=== PATIENT | female | born 1950 | race Caucasian/White ===

== ENCOUNTER 2018-01-23 05:15 | Inpatient (IN) | payer OTHER, MEDICARE ==
[2018-01-04 12:36] LABS: URINE BILIRUBIN NEGATIVE (Negative); URINE BLOOD NEGATIVE (Negative); URINE CLARITY CLEAR; URINE COLOR YELLOW; URINE GLUCOSE-RANDOM* NEGATIVE (Negative); URINE KETONES NEGATIVE (Negative); URINE NITRITE-REFLEX NEGATIVE (Negative); URINE PROTEIN (DIPSTICK) NEGATIVE (Negative); URINE SPECIFIC GRAVITY 1.015 (1.005-1.035); URINE UROBILINOGEN 0.2 E.U./dl (0.2-1.0)
[2018-01-04 12:38] LABS: HEMATOCRIT 41.5 % (37.0-47.0); HEMOGLOBIN 14.1 gm/dL (12.0-15.0); MCH 31.6 pg (26.0-34.0); MCHC 33.9 g/dL (28.0-37.0); MCV 93.2 fL (80.0-100.0); RBC 4.45 mil/uL (4.20-5.00); WBC 7.8 thou/uL (4.0-11.0)
[2018-01-04 12:39] LABS: URINE LEUKOCYTES-REFLEX 1+ (Negative)
[2018-01-04 12:45] LABS: MUCUS 4-6 Moderate strn/LPF (None Seen)
[2018-01-04 12:46] LABS: BACTERIA-REFLEX 1-9 Few /HPF (None Seen); CASTS None Seen /LPF (None Seen); CRYSTALS None Seen /LPF (None Seen); SQUAMOUS >10 Many /LPF (0-3); URINE RBC 0-2 Rare /HPF (0-2); URINE WBC-REFLEX 6-15 Few /HPF (0-5)
[2018-01-04 12:47] LABS: ALBUMIN 4.1 g/dL (3.4-5.0); CALCIUM 9.4 mg/dL (8.5-10.1); CREATININE 0.8 mg/dL (0.6-1.0); POTASSIUM 4.7 mmol/L (3.5-5.1)
[2018-01-04 12:51] LABS: PROTIME 10.4 Seconds (9.3-11.4)
[~2018-01-23] VITALS: Ht 162.6 cm; Wt 98.4 kg
[2018-01-23] VITALS (10 sets, daily range): BP systolic 125–145; BP diastolic 43–72
--- NOTE | ~2018-01-23 | D ---
[facility] [place] [address] DISCHARGE SUMMARY Name: RE GAYLE Josue Room #: 406-P [facility] IN M..#: [id number] Admission: 01/23/18 Attend Phys: Juwan Nunez MD Discharge: 01/27/18 Date of : 52 Report #: [id number] THIS REPORT FOR: //name// CC: Juwan Capone DATE OF ADMISSION: 01/23/2018 DATE OF DISCHARGE: 01/27/2018 FINAL DIAGNOSIS: End-stage degenerative arthritis, right knee. OPERATIONS AND PROCEDURES: Right total knee arthroplasty. HISTORY OF PRESENT ILLNESS: This 67-year-old female presents with progressive right knee pain and clinical radiographic findings consistent with end-stage degenerative arthritis. She has elected to go ahead with total knee arthroplasty. HOSPITAL COURSE: She was admitted and taken to the operating room on January 25. She underwent right total knee arthroplasty, which she tolerated nicely. Postoperatively, her course was largely unremarkable. She was able to advance to regular diet and resume her routine medications. She was started on Xarelto as anticoagulation prophylaxis. She was able to advance to oral pain medications, then made good progress with physical therapy. She was still a bit too uncomfortable and weak for discharge on January 26, but seems now more comfortable, safe and independent and anxious for discharge home today. DISCHARGE MEDICATIONS: Include losartan 100 mg daily, Nelly 180 mg daily, albuterol inhaler p.r.n., hydrocodone 5 mg q.4h. p.r.n. for pain, Vyvanse 20 mg daily, vitamin D supplement 2000 units daily, Xarelto 10 mg daily. She will continue a gentle independent exercise program and begin outpatient therapy for range of motion and strengthening. I have asked her to call me should there be any problems or questions. I will plan to see her back in my office at about 2 weeks for followup and suture removal. <ELECTRONICALLY SIGNED> By: Juwan Nunez MD 01/31/18 0800 [id number] 1415 Juwan Nunez MD /nt
--- NOTE | ~2018-01-23 | O ---
[facility] [place] [address] OPERATIVE REPORT Name: RE GAYLE Room #: 406-P [facility] IN M.R.#: [id number] Admission: 01/23/18 Attend Phys: Juwan Nunez MD Discharge: Date of : 52 Report #: [id number] THIS REPORT FOR: //name// CC: Juwan Capone DATE OF SERVICE: 01/23/2018 PREOPERATIVE DIAGNOSIS: End-stage degenerative arthritis, right knee. POSTOPERATIVE DIAGNOSIS: End-stage degenerative arthritis, right knee. PROCEDURE: Right total knee arthroplasty. SURGEON: Juwan Nunez MD INDICATIONS: This heavy, somewhat deconditioned 67-year-old female presents with progressive right knee pain. Clinical exam and x-rays reveal moderate diffuse degenerative change with mild valgus malalignment and joint space narrowing. She has had similar problems in the opposite knee benefited by left total knee replacement in the past. She is here now for right total knee replacement. We have discussed preoperatively the potential risks and benefits of both surgical and nonsurgical management. She and her understand well and wish to proceed with right total knee arthroplasty. I have explained that she may have some difficulty with postoperative rehabilitation and also with the wound healing given her large size and moderately abundant adipose tissue. DESCRIPTION OF PROCEDURE: The patient was taken to the operating room where she was placed under general anesthesia. Prophylactic intravenous antibiotics were administered. The right knee and leg were meticulously prepped and draped. An anterior longitudinal skin incision was made and carried through abundant subcutaneous adipose tissue and through the medial parapatellar retinaculum. The patella was reflected laterally. Moderately severe degenerative change in all 3 compartments was noted. The [employer] Nephew knee system was utilized. Intramedullary guides were used on both the femur and the tibia. The femur was cut in 5 degrees of valgus and the tibia cut perpendicular to long axis of the bone. Sufficient bone was resected to correct the mild preoperative flexion contracture and mild valgus malalignment. The femur seemed best suited for a size 6 femoral component. The tibia was best suited for a size 5 tibial baseplate. A 10 mm polyethylene insert resulted in satisfactory alignment, range of motion and stability. The patellar surface was resected and a 35 mm patellar button fit nicely and a trial button was placed. The patella seemed to track nicely and appeared to be stable throughout a full arc of motion. The trial components were then removed. The surfaces were thoroughly irrigated [address] [address] OPERATIVE REPORT Name: RE GAYLE Room #: 406-P [facility] IN [facility]#: [id number] Admission: 01/23/18 Attend Phys: Juwan Nunez MD Discharge: Date of : 52 Report #: [id number] and dried. The intramedullary canal was blocked with a bone block on both the femoral and tibial sides. Methyl methacrylate cement was mixed and injected into the porous surface of the tibia where there was moderate osteoporosis. The Carolina [employer] Nephew Bianca II right tibial component was then inserted. This was impacted into position. Excess cement was removed from around its margin. It seated nicely and appeared to be secure. A 10 mm cruciate retaining Legion articular polyethylene insert was snapped into position. It seated nicely and appeared to be secure. The Carolina [employer] Nephew size 6 right cruciate retaining Legion femoral component was then inserted. It was impacted onto the distal femur. A small amount of cement was used at the distal aspect at the anchor fixation holes where the bone is somewhat soft and osteoporotic. This component also seemed to seat nicely and appeared to be secure. The patella button was inserted using methyl methacrylate cement and the 35 mm Bianca II patellar component. This was positioned well with appropriate anchor holes and methyl methacralate cement. It seated nicely and appeared to be secure. It was positioned with a patellar clamp until the cement had hardened and excess cement was removed from around its margin. The knee was tested and demonstrated full knee extension and flexion beyond 130 degrees with good stability. The patella seemed to track nicely and appeared to be stable. A single Hemovac was left in the wound exiting through a separate stab incision. The fascia was then closed with multiple #1 Vicryl sutures. The tourniquet was then deflated after a total tourniquet time of 52 minutes. Good hemostasis was confirmed. The abundant adipose tissue was closed in multiple layers using 0 Monocryl. The skin was closed with skin jonnathan. A sterile dressing was applied. The patient was awakened and returned to the recovery room in good condition. <ELECTRONICALLY SIGNED> By: Juwan Nunez MD 01/24/18 0813 [id number] 1020 Juwan Nunez MD /nt
[~2018-01-23 05:15] MED LIST: ALLEGRA ALLERG180 MG PO; AZELASTINE HCL6 ML OPHTHALMIC; AZELASTINE137 MCG/0. NASAL; COZAAR100 MG PO; NORCO 5-325 TA1 EACH PO; PROBIOTIC1 EAC1 PO; VENTOLIN HFA 1818 GM INH; VITAMIN D32000 UNI1 PO; VYVANSE20 MG PO
[2018-01-24 04:00] VITALS: BP 118/50
[2018-01-24 05:30] LABS: HEMATOCRIT 29.7 % (37.0-47.0); MCH 31.8 pg (26.0-34.0); MCHC 33.7 g/dL (28.0-37.0); MCV 94.4 fL (80.0-100.0); RBC 3.14 mil/uL (4.20-5.00); RDW 13.6 % (10.5-14.5)
[2018-01-24 08:00] VITALS: BP 124/61
[2018-01-24 08:13] VITALS: BP 124/61
[2018-01-24 15:37] VITALS: BP 127/45
[2018-01-24 20:00] VITALS: BP 153/67
[2018-01-25] VITALS (9 sets, daily range): BP systolic 90–125; BP diastolic 40–65
[2018-01-25 06:17] LABS: HEMATOCRIT 28.2 % (37.0-47.0); HEMOGLOBIN 9.6 gm/dL (12.0-15.0); MCH 32.3 pg (26.0-34.0); MCHC 34.1 g/dL (28.0-37.0); MCV 94.8 fL (80.0-100.0); RBC 2.98 mil/uL (4.20-5.00); RDW 13.8 % (10.5-14.5); WBC 10.6 thou/uL (4.0-11.0)
[2018-01-26 04:00] VITALS: BP 143/62
[2018-01-26 05:44] LABS: HEMATOCRIT 27.4 % (37.0-47.0); HEMOGLOBIN 9.5 gm/dL (12.0-15.0); MCH 32.5 pg (26.0-34.0); MCHC 34.6 g/dL (28.0-37.0); MCV 94.1 fL (80.0-100.0); RBC 2.92 mil/uL (4.20-5.00); RDW 13.9 % (10.5-14.5); WBC 10.1 thou/uL (4.0-11.0)
[2018-01-26 08:00] VITALS: BP 132/54
[2018-01-26 09:04] VITALS: BP 132/54
[2018-01-26 17:01] VITALS: BP 142/47
[2018-01-26 19:36] VITALS: BP 106/40
[2018-01-26 21:00] VITALS: BP 106/40
[2018-01-27 00:05] VITALS: BP 123/56
[2018-01-27 05:06] VITALS: BP 137/67
[2018-01-27 07:38] VITALS: BP 116/60
[2018-01-27 13:03] VITALS: BP 116/60
== END 2018-01-27 16:35 | disposition home health service (06) | DRG 470 ==
LOC: 4N 05:15 → TBA 05:15 → PRE 05:24 → 4N 10:48 → OR 11:13 → EDSTATUS 12:06 → PRE 12:08 → ENTRNSPT 01-27 16:25 → 4N 01-27 16:35
PROVIDERS: Orthopaedic Surgery
PROC: 0SRC0J9 Replacement of Right Knee Joint with Synthetic Substitute, Cemented, Open Approach (ICD-10-PCS; principal; 2018-01-23)
DX: M17.11 Unilateral primary osteoarthritis, right knee (principal); G47.33 Obstructive sleep apnea (adult) (pediatric); F32.9 Major depressive disorder, single episode, unspecified; G89.29 Other chronic pain; F41.9 Anxiety disorder, unspecified; M54.9 Dorsalgia, unspecified; Z82.49 Family history of ischemic heart disease and other diseases of the circulatory system; Z83.3 Family history of diabetes mellitus; Z88.6 Allergy status to analgesic agent; Z88.8 Allergy status to other drugs, medicaments and biological substances; Z79.899 Other long term (current) drug therapy; Z98.49 Cataract extraction status, unspecified eye; Z90.49 Acquired absence of other specified parts of digestive tract
CPT/HCPCS: 10790; 50010; 50101; 50415; 50954; 51130; 51225; 51412; 51771; 53364; 56525; 62110; 62900; 64042; 64043; 70005

== ENCOUNTER → 2021-01-02 | Outpatient (CLI) | payer OTHER, MEDICARE | LOC: SJCVCIMAG 02:14 | PROVIDERS: ATTEND Emergency Medicine | DX: I87.2 Venous insufficiency (chronic) (peripheral) (principal); M79.89 Other specified soft tissue disorders ==

== ENCOUNTER → 2021-01-07 | Outpatient (CLI) | payer OTHER, MEDICARE | LOC: HYPER 13:17 | PROVIDERS: ATTEND Emergency Medicine | DX: I89.0 Lymphedema, not elsewhere classified (principal); R60.0 Localized edema; E66.01 Morbid (severe) obesity due to excess calories; E21.3 Hyperparathyroidism, unspecified; G47.30 Sleep apnea, unspecified; I10 Essential (primary) hypertension; K21.9 Gastro-esophageal reflux disease without esophagitis; M17.11 Unilateral primary osteoarthritis, right knee; F41.9 Anxiety disorder, unspecified; F32.9 Major depressive disorder, single episode, unspecified; Z68.42 Body mass index [BMI] 45.0-49.9, adult ==

== ENCOUNTER → 2021-01-13 | Outpatient (CLI) | payer OTHER, MEDICARE ==
[~2021-01-13] MED LIST changes: +CALCIUM500 MG PO; +MELOXICAM7.5 MG PO; +MYRBETRIQ25 MG PO; +NORVASC 2.5 MG2.5 M1 PO; +ZYRTEC10 M5 PO
== END ==
LOC: SJCVC 11:12
PROVIDERS: ATTEND Nuclear Medicine Nuclear Cardiology
DX: I87.323 Chronic venous hypertension (idiopathic) with inflammation of bilateral lower extremity (principal); Z72.89 Other problems related to lifestyle; Z88.8 Allergy status to other drugs, medicaments and biological substances; Z79.899 Other long term (current) drug therapy

== ENCOUNTER → 2021-01-14 | Outpatient (CLI) | payer OTHER, MEDICARE ==
[~2021-01-14] VITALS: Ht 162.6 cm; Wt 122.5 kg
[2021-01-14 10:13] VITALS: BP 109/85
[2021-01-14 10:31] LABS: HEMOGLOBIN 12.5 gm/dL (12.0-15.0); MCHC 32.9 g/dL (28.0-37.0); MCV 94.2 fL (80.0-100.0); RBC 4.03 mil/uL (4.20-5.00); RDW 13.7 % (10.5-14.5); WBC 7.4 thou/uL (4.0-11.0)
[2021-01-14 10:41] LABS: CREATININE 0.9 mg/dL (0.6-1.0); POTASSIUM 3.8 mmol/L (3.5-5.1)
== END | disposition home or self-care (01) ==
LOC: CATH 06:30
PROVIDERS: ATTEND Nuclear Medicine Nuclear Cardiology
DX: I87.2 Venous insufficiency (chronic) (peripheral) (principal); I87.323 Chronic venous hypertension (idiopathic) with inflammation of bilateral lower extremity; R22.43 Localized swelling, mass and lump, lower limb, bilateral; I10 Essential (primary) hypertension; I73.9 Peripheral vascular disease, unspecified; F32.9 Major depressive disorder, single episode, unspecified; F41.9 Anxiety disorder, unspecified; G47.30 Sleep apnea, unspecified; G89.29 Other chronic pain; E66.9 Obesity, unspecified; Z68.42 Body mass index [BMI] 45.0-49.9, adult; Z88.6 Allergy status to analgesic agent; Z88.8 Allergy status to other drugs, medicaments and biological substances; Z98.890 Other specified postprocedural states; Z79.899 Other long term (current) drug therapy; Z90.49 Acquired absence of other specified parts of digestive tract; Z96.652 Presence of left artificial knee joint

== ENCOUNTER → 2021-01-26 | Outpatient (CLI) | payer OTHER, MEDICARE | END | disposition home or self-care (01) | LOC: CATH 01-23 06:27 | PROVIDERS: ATTEND Nuclear Medicine Nuclear Cardiology | DX: I87.2 Venous insufficiency (chronic) (peripheral) (principal); I87.323 Chronic venous hypertension (idiopathic) with inflammation of bilateral lower extremity; M79.89 Other specified soft tissue disorders; M79.604 Pain in right leg; M79.605 Pain in left leg; I10 Essential (primary) hypertension; Z98.890 Other specified postprocedural states; Z79.899 Other long term (current) drug therapy; Z96.653 Presence of artificial knee joint, bilateral ==

== ENCOUNTER → 2021-02-10 | Outpatient (CLI) | payer OTHER, MEDICARE | LOC: HYPER 10:51 | PROVIDERS: ATTEND Emergency Medicine | DX: I89.0 Lymphedema, not elsewhere classified (principal); R60.0 Localized edema; I10 Essential (primary) hypertension; E21.3 Hyperparathyroidism, unspecified; M17.11 Unilateral primary osteoarthritis, right knee; K21.9 Gastro-esophageal reflux disease without esophagitis; M19.90 Unspecified osteoarthritis, unspecified site; G47.30 Sleep apnea, unspecified; E66.01 Morbid (severe) obesity due to excess calories; F41.9 Anxiety disorder, unspecified; Z79.899 Other long term (current) drug therapy ==

== ENCOUNTER → 2021-03-19 | Outpatient (CLI) | payer OTHER, MEDICARE | LOC: HYPER 14:58 | PROVIDERS: ATTEND Emergency Medicine | DX: I89.0 Lymphedema, not elsewhere classified (principal); E21.3 Hyperparathyroidism, unspecified; M17.11 Unilateral primary osteoarthritis, right knee; I10 Essential (primary) hypertension; R60.0 Localized edema; E89.0 Postprocedural hypothyroidism; K21.9 Gastro-esophageal reflux disease without esophagitis; G47.30 Sleep apnea, unspecified; M19.90 Unspecified osteoarthritis, unspecified site; E66.01 Morbid (severe) obesity due to excess calories; F32.9 Major depressive disorder, single episode, unspecified; F41.9 Anxiety disorder, unspecified; Z68.42 Body mass index [BMI] 45.0-49.9, adult; Z79.899 Other long term (current) drug therapy; Z90.49 Acquired absence of other specified parts of digestive tract ==

== ENCOUNTER → 2021-04-30 | Outpatient (CLI) | payer OTHER, MEDICARE | LOC: SJCVCIMAG 08:34 | PROVIDERS: ATTEND Nuclear Medicine Nuclear Cardiology | DX: I87.323 Chronic venous hypertension (idiopathic) with inflammation of bilateral lower extremity (principal); M79.604 Pain in right leg; M79.605 Pain in left leg; M79.89 Other specified soft tissue disorders; I87.2 Venous insufficiency (chronic) (peripheral); I10 Essential (primary) hypertension; I89.0 Lymphedema, not elsewhere classified; Z88.8 Allergy status to other drugs, medicaments and biological substances; Z98.890 Other specified postprocedural states; Z79.899 Other long term (current) drug therapy; Z82.49 Family history of ischemic heart disease and other diseases of the circulatory system ==